=== PATIENT | female | born 1950 | race Hispanic/Latino ===

== ENCOUNTER → 2020-03-19 | Outpatient (CLI) | payer OTHER | END | disposition home or self-care (01) | LOC: RAH 13:16 | PROVIDERS: ATTEND Family Medicine | DX: J94.8 Other specified pleural conditions (principal); R91.8 Other nonspecific abnormal finding of lung field; R93.89 Abnormal findings on diagnostic imaging of other specified body structures | CPT/HCPCS: 71250 ==

== ENCOUNTER → 2020-09-08 | Outpatient (CLI) | payer OTHER | END | disposition home or self-care (01) | LOC: RAH 16:39 | PROVIDERS: ATTEND Family Medicine | DX: Z12.31 Encounter for screening mammogram for malignant neoplasm of breast (principal) | CPT/HCPCS: 77067 ==

== ENCOUNTER → 2023-07-29 | Outpatient (CLI) | payer OTHER | END | disposition home or self-care (01) | LOC: RAH 12:50 | PROVIDERS: ATTEND Internal Medicine | DX: M79.89 Other specified soft tissue disorders (principal); R60.9 Edema, unspecified | CPT/HCPCS: 93970 ==

== ENCOUNTER 2023-12-14 13:14 | Observation (INO) | payer OTHER ==
[~2023-12-14] VITALS: Ht 157.5 cm; Wt 73.8 kg
[2023-12-14] MEDS ORDERED: ondanSETRON 4MG INJ IV PRN (14:00)
[2023-12-14] MEDS ORDERED: NITROGLYCERIN 0.4 MG SL TAB SL PRN (14:00)
[2023-12-14] MEDS ORDERED: ARTIFICAL TEARS SOL 15 ML OP PRN ×2 (14:00→15:30)
[2023-12-14] MEDS ORDERED: LACTULOSE 20 GM/30 ML UDCUP PO PRN (14:00)
[2023-12-14] MEDS ORDERED: doCUSate SODIUM 100 MG CAP PO PRN (14:00)
[2023-12-14] MEDS ORDERED: guaiFENesin SUGAR-FREE 100 MG/5 ML UDCUP PO PRN (14:00)
[2023-12-14] MEDS ORDERED: BENZOCAINE/MENTH/CETYLPYRD CL 1 EACH LOZENGE MM PRN (14:00)
[2023-12-14] MEDS ORDERED: acetaMINOPHEN 325 MG TAB PO PRN ×2 (14:00)
[2023-12-14] MEDS ORDERED: polyETHYLene GLYCol 3350 17 GM POWD.PACK PO PRN (14:00)
[2023-12-14 14:41] LABS: HEMATOCRIT 37.3 % (36-48); MEAN CORPUSCULAR HEMOGLOBIN 28.4 pg (27.0-33.0); MEAN CORPUSCULAR HGB CONC 32.4 g/dL (32.0-36.0); MEAN CORPUSCULAR VOLUME 87.6 fL (79-99); RED BLOOD CELL COUNT(AUTO) 4.26 MIL/uL (4.00-5.50); RED CELL DISTRIBUTION WIDTH 12.9 % (11.0-15.5); WHITE BLOOD COUNT (AUTO) 13.9 K/uL (4.8-10.8)
[2023-12-14 14:50] LABS: CREATININE 0.9 mg/dL (0.5-1.0); POTASSIUM 3.4 mmol/L (3.5-5.1)
[2023-12-14 14:59] LABS: ALBUMIN 4.2 g/dL (3.5-5.0); BILIRUBIN,TOTAL 0.3 mg/dL (0.2-1.0); MAGNESIUM 1.8 mg/dL (1.80-2.40); TOTAL PROTEIN, SERUM 8.3 g/dL (6.0-8.3)
[2023-12-14 15:39] LABS: SARS-CoV-2, RNA, NAAT NEGATIVE SARS CoV-2 (NEGATIVE)
[2023-12-14] MEDS: ASPIRIN 81 MG EC TAB PO SCH (15:41)
[2023-12-14] MEDS: INSULIN LISpro 100 UNIT/ML 3ML SQ SCH (15:42)
[2023-12-14 15:48] LABS: INFLUENZA TYPE A Negative For Type A (NEGATIVE); INFLUENZA TYPE B Negative For Type B (NEGATIVE)
[2023-12-14] MEDS ORDERED: LOSA100T59 PO (17:46)
[2023-12-14] MEDS ORDERED: ATOR40TA69 PO (17:46)
[2023-12-14] MEDS ORDERED: ESCI-8 PO (17:46)
[2023-12-14] MEDS ORDERED: AMLO-257 PO (17:46)
[2023-12-14] MEDS ORDERED: METF-446 PO (17:46)
[2023-12-14] MEDS ORDERED: HYDR25TA PO (17:46)
[2023-12-14] MEDS ORDERED: PANT40TA54 PO (17:46)
[2023-12-14] MEDS: hydrALAZine 25MG TABLET PO PRN (17:55)
[2023-12-14 18:25] VITALS: BP 180/60; PULSE 84; RESP 18; TEMP 98
[2023-12-14 18:41] VITALS: O2SAT 96
[2023-12-14] MEDS ORDERED: PoTASSium chl 10% ELIXIR 20MEQ 20 MEQ/15 ML UDCUP PO PRN (19:30)
[2023-12-14] MEDS ORDERED: PoTASSium chloRIDE 20MEQ/100ML 100 ML IV PRN (19:30)
[2023-12-14 20:00] VITALS: O2SAT 96
[2023-12-14 20:15] VITALS: BP 165/66; PULSE 81; RESP 18; TEMP 99.7
[2023-12-14] MEDS: FAMOTIDINE 20MG TAB PO SCH (21:31)
[2023-12-14] MEDS: atorVAStatin 40 MG TABLET PO SCH (21:31)
[2023-12-14 23:41] VITALS: BP 176/69; PULSE 82; RESP 18; TEMP 97.9
[2023-12-15] VITALS (8 sets, daily range): BP systolic 126–171; BP diastolic 47–86; PULSE 62–87; RESP 18–20; TEMP 97.4–98.5; O2SAT 96–98
[2023-12-15 03:34] LABS: HEMATOCRIT 34.5 % (36-48); MEAN CORPUSCULAR HEMOGLOBIN 28.3 pg (27.0-33.0); MEAN CORPUSCULAR HGB CONC 32.2 g/dL (32.0-36.0); RED BLOOD CELL COUNT(AUTO) 3.92 MIL/uL (4.00-5.50); RED CELL DISTRIBUTION WIDTH 12.9 % (11.0-15.5); WHITE BLOOD COUNT (AUTO) 11.5 K/uL (4.8-10.8)
[2023-12-15 03:50] LABS: HEMOGLOBIN A1C 7.3 % (4.0-6.0)
[2023-12-15 03:57] LABS: ALBUMIN 3.5 g/dL (3.5-5.0); BILIRUBIN,TOTAL 0.4 mg/dL (0.2-1.0); CREATININE 0.9 mg/dL (0.5-1.0); MAGNESIUM 1.9 mg/dL (1.80-2.40); POTASSIUM 3.6 mmol/L (3.5-5.1); THYROID STIMULATING HORMONE 1.23 uIU/mL (0.36-3.74); TOTAL PROTEIN, SERUM 6.9 g/dL (6.0-8.3)
[2023-12-15] MEDS: PoTASSium chloRIDE 20MEQ ER 20 MEQ ERTAB PO PRN (08:47)
[2023-12-15] MEDS: FAMOTIDINE 20MG TAB PO SCH (08:48)
[2023-12-15] MEDS: ENOXAPARIN SODIUM 40 MG/0.4 ML SYRINGE SQ SCH (08:49)
[2023-12-15] MEDS: metoPROLOL tartRATE 25 MG TAB PO ONE (09:27)
[2023-12-15] MEDS ORDERED: IOHEXOL 350 MG/ML 100ML INFUS..BTL IV ONE (11:50)
[2023-12-15] MEDS ORDERED: metoPROLOL tartRATE 1 MG/ML 5ML VIAL IV ONE (11:55)
[2023-12-16 04:39] VITALS: BP 126/47; PULSE 81; RESP 17; TEMP 98.2
[2023-12-16 08:00] VITALS: BP_SYST 136; BP_SYST 161; BP_DIAS 59; BP_DIAS 66; PULSE 67; PULSE 77; RESP 18; TEMP 97.5; TEMP 97.9; O2SAT 96
[2023-12-16] MEDS: LoSARTan 50 MG TABLET PO SCH (10:35)
[2023-12-16 11:44] VITALS: BP 150/53; PULSE 79; RESP 18; TEMP 97.9
[2023-12-16] MEDS: metoPROLOL tartRATE 25 MG TAB PO SCH (14:30)
[2023-12-16] MEDS ORDERED: METO25TA6 PO (15:51)
[2023-12-16] MEDS ORDERED: AEC81 PO (15:51)
[2023-12-16 16:00] VITALS: BP 163/74; PULSE 74; RESP 18; TEMP 98
== END 2023-12-16 17:10 | disposition home or self-care (01) ==
LOC: EDH 13:14 → EDHIP 13:37 → 4CH 18:30
PROVIDERS: ADMIT Internal Medicine Critical Care Medicine; ATTEND Internal Medicine Critical Care Medicine
DX: R07.89 Other chest pain (principal); Z20.822 Contact with and (suspected) exposure to COVID-19; R79.89 Other specified abnormal findings of blood chemistry; I10 Essential (primary) hypertension; E78.5 Hyperlipidemia, unspecified; R06.02 Shortness of breath; E11.9 Type 2 diabetes mellitus without complications; R60.0 Localized edema; R01.1 Cardiac murmur, unspecified; E87.1 Hypo-osmolality and hyponatremia; E87.6 Hypokalemia; I25.10 Atherosclerotic heart disease of native coronary artery without angina pectoris; M19.90 Unspecified osteoarthritis, unspecified site; F32.A Depression, unspecified; Z79.82 Long term (current) use of aspirin; Z79.84 Long term (current) use of oral hypoglycemic drugs; Z79.899 Other long term (current) drug therapy; Z88.0 Allergy status to penicillin; Z87.01 Personal history of pneumonia (recurrent)
CPT/HCPCS: 83735 ×2; 84484 ×2; 80053 ×2; 85027 ×2; 85378; 87804 ×2; 82948 ×9; 36415 ×2; 87635; 71045; 93970; 93005; 84145; 96372 ×2; 83036; 84443; 83880; 75574; 93306; G0378 ×50; G0379; J3490; J1650 ×2; Q9967

== ENCOUNTER 2024-04-27 17:32 | Emergency (ER) | payer OTHER ==
[~2024-04-27] VITALS: Ht 160 cm; Wt 73.9 kg
[~2024-04-27 17:32] MED LIST: AEC81 PO; AMLO-257 PO; ATOR40TA69 PO; ESCI-8 PO; HYDR25TA PO; LOSA100T59 PO; METF-446 PO; METO25TA6 PO; PANT40TA54 PO
--- NOTE | 2024-04-27 18:26 | HMCIMG ---
RIGHT SHOULDER RADIOGRAPHS - 2-3 VIEWS INDICATION: Pain COMPARISON: None FINDINGS: No fracture or dislocation identified. Acromioclavicular and glenohumeral alignments are well maintained. Visible portions of the right clavicle are intact. IMPRESSION: No evidence for fracture or dislocation.
--- NOTE | 2024-04-27 18:54 | ERN ---
General Chief Complaint: Mechanical Fall Stated Complaint: HEAD PAIN DUE TO FALL Time Seen by MD: 17:33 History of Present Illness Initial Comments 74-year-old female who presents for a mechanical fall. She did hit the back of her head. No loss of consciousness. No confusion. No vomiting. She also complains of some left shoulder pain. No preceding symptoms. She has otherwise been in her normal state of health. Allergies: Coded Allergies: Penicillins (Verified Allergy, 06/26/12) Home Meds Active Scripts Metoprolol Tartrate (Metoprolol Tartrate) 25 Mg Tablet, 12.5 MG PO BID, #60 TAB Prov:YFN VENEGAS [employer] 12/16/23 Aspirin (ASPIRIN 81 MG ECTAB) 81 Mg Ectab, 81 MG PO DAILY, #30 TAB.EC Prov:YFN VENEGAS [employer] 12/16/23 Reported Medications Metformin HCl (Metformin HCl) 1,000 Mg Tablet, 1 TAB PO BID for 30 Days, #60 TAB 0 Refills 12/14/23 Hydrochlorothiazide (Hydrochlorothiazide) 25 Mg Tablet, 1 TAB PO DAILY for 30 Days, #30 TAB 0 Refills 12/14/23 Pantoprazole Sodium (Pantoprazole Sodium) 40 Mg Tablet.dr, 1 TAB PO DAILY for 30 Days, #30 TAB 0 Refills 12/14/23 Atorvastatin Calcium (LIPITOR) 40 Mg Tablet, 1 TAB PO HS for 30 Days, #30 TAB 0 Refills 24 Losartan Potassium (Losartan Potassium) 100 Mg Tablet, 1 TAB PO DAILY for 30 Days, #30 TAB 0 Refills 24 Escitalopram Oxalate (Escitalopram Oxalate) 10 Mg Tablet, 1 TAB PO DAILY for 30 Days, #30 TAB 0 Refills 12/14/23 Amlodipine Besylate (Amlodipine Besylate) 5 Mg Tablet, 1 TAB PO DAILY for 30 Days, #30 TAB 0 Refills 12/14/23 Past Medical History Past Medical History: Arthritis, Diabetes-Type II, High Cholesterol, Hypertension Past Surgical History: None MDM CC: Fall head injury left shoulder injury Historian: Patient Comorbidities: Diabetes, hypertension, arthritis Limitations by social determinants of health: None Differential diagnosis: Head injury, shoulder fracture, musculoskeletal injury, hematoma, other. Vital signs are stable Clinically patient has a hematoma back of the head, otherwise unremarkable. She was have some shoulder tenderness which he was full range of motion neurovascularly intact no obvious deformities or bruising. Cranial nerves are intact. CT head without contrast (independently interpreted by me): No acute fractures or bleeding CT cervical spine (independently interpreted by me): No acute fractures Left shoulder x-ray (independently interpreted by me): No dislocation or bony fractures Patient was clinically intact. She was here to make sure she did not have any brain injury or head injury. There are no fractures or obvious injuries. She was GCS 15 and ambulatory overall looks well. We will DC with supportive care and recommend PCP follow up. ED Course Orders Procedure Category Date Status Time Shoulder Comp 2+Vws Rt RAD 04/27/24 Resulted 17:43 Ct Head/Brain W/O CT 04/27/24 Resulted Contrast 17:43 Ct Cervical Spine W/O CT 04/27/24 Resulted Contrast 17:43 Vital Signs Date Time Temp Pulse Resp B/P (MAP) Pulse Ox O2 Delivery O2 Flow Rate FiO2 04/27/24 19:29 98.4 80 18 166/70 98 Room Air* 0 21 04/27/24 17:40 98.4 88 16 166/70 98 Room Air 0 DX & DISP Disposition: Discharge Departure Impression: Primary Impression: Minor head injury Additional Impression: Traumatic hematoma of head Condition: Stable Additional Instructions: The CT scan of your head and cervical spine is unremarkable. The x-ray is unremarkable. For your shoulder pain, you can apply ice multiple times a day for pain or discomfort. You can take [id number] Tylenol or ibuprofen as needed. I also recommend that you ice the back of your head to reduce the swelling. Please return to the emergency department as needed. Referrals: SYLVIA CALDERON MD (PCP) JOSE DAVID BAL DO Apr 27, 2024 18:54
--- NOTE | 2024-04-27 18:58 | HMCIMG ---
CT HEAD WITHOUT CONTRAST INDICATION: Fall TECHNIQUE: Noncontrast axial helical CT images from the vertex through the skull base using 5 mm slice thickness without contrast material. Coronal and sagittal reconstructions were also included. Dose reduction techniques was used using integrated, automated and adaptive dose reduction exposure control. CT was performed with one or more of the following dose reduction techniques: Automated exposure control, adjustment of the mA and/or kV according to patient size, or use of iterative reconstruction technique. COMPARISON: None FINDINGS: Scattered and coalescent subcortical and periventricular white matter low attenuating areas likely represent residual of chronic small vessel arteriopathy and/or remote vascular insult. Generalized mild cerebral cortical atrophy is present.. No evidence for abnormal extra-axial fluid collections or masses. The ventricles and sulci are normal in size and configuration. No evidence for intracranial parenchymal, epidural, or subdural hemorrhage, mass effect or midline shift. The bean-white matter differentiation is well preserved. No secondary evidence to suggest acute ischemia. Mild calcific plaque is present along the martinez of the cavernous segments of both internal carotid arteries, including mild along the martinez of both vertebral arteries at the level of the foramen magnum. The brainstem and cerebellum appear normal. The visualized orbits appear unremarkable. The visible paranasal sinuses and mastoid air cells are clear. The calvarium appears normal. IMPRESSION: Chronic white matter ischemic changes, mild brain atrophy, and arteriosclerotic disease as described, without acute component.
--- NOTE | 2024-04-27 18:59 | HMCIMG ---
CT CERVICAL SPINE WITHOUT CONTRAST INDICATION: Neck pain TECHNIQUE: Contiguous axial computed tomography imaging using 2 mm slice thickness through the cervical spine. Reconstructions in the sagittal and coronal planes. CT was performed with one or more of the following dose reduction techniques: Automated exposure control, adjustment of the mA and/or kV according to patient size, or use of iterative reconstruction technique. COMPARISON: None. FINDINGS: Straightening of the normal lordosis may be related to overlying muscle spasm, underlying degenerative joint disease and/or patient positioning. Vertebral bodies are normal stature without evidence for compression deformity or fracture. No evidence for subluxation. Mild to moderate C5-C6 degenerative joint disease. The craniocervical junction appears normal. The atlantoaxial articulation is within normal limits. The dens is intact. The pre- and paravertebral soft tissues appear unremarkable. Left pulmonary apical pleural-parenchymal scarring and chronic calcification. IMPRESSION: No evidence for fracture or subluxation.
[2024-04-27 19:29] VITALS: BP 166/70; PULSE 80; RESP 18; TEMP 98.5; O2SAT 98
== END 2024-04-27 19:31 | disposition home or self-care (01) ==
LOC: EDH 17:32
DX: S00.93XA Contusion of unspecified part of head, initial encounter (principal); E11.9 Type 2 diabetes mellitus without complications; E78.00 Pure hypercholesterolemia, unspecified; I10 Essential (primary) hypertension; I67.82 Cerebral ischemia; M19.90 Unspecified osteoarthritis, unspecified site; Z79.82 Long term (current) use of aspirin; Z79.84 Long term (current) use of oral hypoglycemic drugs; Z79.899 Other long term (current) drug therapy; Z88.0 Allergy status to penicillin; W18.39XA Other fall on same level, initial encounter; Y93.89 Activity, other specified; Y92.89 Other specified places as the place of occurrence of the external cause; Y99.8 Other external cause status
CPT/HCPCS: 70450; 72125; 73030; 99284